=== PATIENT | male | born 1985 | race Caucasian/White ===

== ENCOUNTER → 2016-04-06 | Outpatient (CLI) | payer BC ==
[~2016-04-06] MED LIST: /WARF5TA OR; AMIO10TA OR; ASPI81CH PO; CARV12.5 OR; DIGO0.126 OR; NO MEDICATIONS
[2016-04-06 19:42] LABS: INR 2.33
== END ==
LOC: M WUC 18:24
PROVIDERS: ATTEND Family Medicine
DX: Z79.01 Long term (current) use of anticoagulants (principal); Z95.2 Presence of prosthetic heart valve

== ENCOUNTER → 2016-05-18 | Outpatient (REF) | payer BC ==
[2016-05-18 13:09] LABS: ANION GAP 6 MEQ/L (8-16); BLOOD UREA NITROGEN 13 MG/DL (7-18); CALCIUM LEVEL 8.8 MG/DL (8.5-10.1); CARBON DIOXIDE LEVEL 29 MEQ/L (21-32); CHLORIDE LEVEL 106 MEQ/L (98-107); CREATININE FOR GFR 0.88 MG/DL (0.70-1.30); GLOMERULAR FILTRATION RATE > 60.0 (>60); GLUCOSE, FASTING 73 MG/DL (70-105); POTASSIUM SERUM 4.4 MEQ/L (3.5-5.1); SODIUM LEVEL 141 MEQ/L (136-145)
[2016-05-18 13:15] LABS: INR 2.72
== END ==
LOC: M SFHCPLAZ 09:11
PROVIDERS: ATTEND Family Medicine
DX: Z51.81 Encounter for therapeutic drug level monitoring (principal); I10 Essential (primary) hypertension

== ENCOUNTER → 2016-06-08 | Outpatient (CLI) | payer BC ==
--- NOTE | 2016-06-08 15:27 | REP ---
MRA BRAIN WITHOUT CONTRAST: HISTORY: Aneurysm. 3D [id number] MR angiography was performed at the level of the [place]. 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 The aneurysm measures 2 x 2 mm and is unchanged in size compared to the previous study. The aneurysm projects lateral from the cavernous right internal carotid artery. There is no other aneurysm or arteriovenous malformation. There are no atherosclerotic lesions. The major intracranial vessels are patent. The vertebral arteries are equal in size. 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 Signed by Og Metz MD 06/08/2016 03:39 P
== END ==
LOC: M RAD 13:49
PROVIDERS: ATTEND Family Medicine
DX: I67.1 Cerebral aneurysm, nonruptured (principal)

== ENCOUNTER → 2016-06-20 | Outpatient (REF) | payer BC ==
[2016-06-20 11:57] LABS: BASO % 0.5 % (0.0-1.0); EOS # 0.2 K/mm3 (0.0-0.50); LARGE UNSTAINED CELL # 0.2 K/mm3 (0.0-0.4); LARGE UNSTAINED CELL % 2.6 % (0.0-4.0); LYMPH # 1.9 K/mm3 (1.5-6.5); LYMPH % 28.6 % (24.0-44.0); MEAN CORPUSCULAR HEMOGLOBIN 31.8 pg (27.0-33.0); MEAN CORPUSCULAR HGB CONC 34.3 g/dl (32.0-36.5); MEAN CORPUSCULAR VOLUME 92.8 fl (80.0-96.0); MONO # 0.6 K/mm3 (0.0-0.8); MONO % 9.2 % (0.0-5.0); NEUTROPHILS # 3.5 K/mm3 (1.8-7.7); PLATELET COUNT, AUTOMATED 206 k/mm3 (150-450); RED CELL DISTRIBUTION WIDTH 12.9 % (11.5-14.5); WHITE BLOOD COUNT 6.2 K/mm3 (4.0-10.0)
[2016-06-20 12:19] LABS: ALBUMIN 4.2 GM/DL (3.2-5.2); ALBUMIN/GLOBULIN RATIO 1.31 (1.00-1.93); ALKALINE PHOSPHATASE 56 U/L (45-117); ALT/SGPT 69 U/L (12-78); ANION GAP 5 MEQ/L (8-16); AST/SGOT 38 U/L (15-37); BILIRUBIN,TOTAL 0.5 MG/DL (0.2-1.0); BLOOD UREA NITROGEN 14 MG/DL (7-18); CALCIUM LEVEL 9.6 MG/DL (8.5-10.1); CARBON DIOXIDE LEVEL 29 MEQ/L (21-32); CHLORIDE LEVEL 106 MEQ/L (98-107); CHOLESTEROL LEVEL 296 MG/DL (<200); CREATININE FOR GFR 0.86 MG/DL (0.70-1.30); GLOMERULAR FILTRATION RATE > 60.0 (>60); GLUCOSE, FASTING 78 MG/DL (70-105); SODIUM LEVEL 140 MEQ/L (136-145); TOTAL PROTEIN 7.4 GM/DL (6.4-8.2); TRIGLYCERIDES LEVEL 115 MG/DL (<150)
[2016-06-20 12:20] LABS: INR 1.75
[2016-06-20 12:23] LABS: POTASSIUM SERUM 5.2 MEQ/L (3.5-5.1)
== END ==
LOC: M SFHCPLAZ 07:54
PROVIDERS: ATTEND Family Medicine
DX: Z13.21 Encounter for screening for nutritional disorder (principal); Z13.220 Encounter for screening for lipoid disorders; Z51.81 Encounter for therapeutic drug level monitoring; Z79.01 Long term (current) use of anticoagulants; I10 Essential (primary) hypertension

== ENCOUNTER 2016-07-29 10:21 | Emergency (ER) | payer BC ==
[~2016-07-29] VITALS: Ht 188 cm; Wt 106.8 kg
[2016-07-29] MEDS ORDERED: COUM10TA PO (10:31)
[2016-07-29] MEDS ORDERED: LISI10TA4 PO (10:34)
[2016-07-29 11:07] LABS: MEAN CORPUSCULAR HEMOGLOBIN 32.3 pg (27.0-33.0); MEAN CORPUSCULAR HGB CONC 35.6 g/dl (32.0-36.5); MEAN CORPUSCULAR VOLUME 90.8 fl (80.0-96.0); RED CELL DISTRIBUTION WIDTH 13.2 % (11.5-14.5)
[2016-07-29 11:18] LABS: ANION GAP 7 MEQ/L (8-16); BLOOD UREA NITROGEN 7 MG/DL (7-18); CARBON DIOXIDE LEVEL 27 MEQ/L (21-32); CHLORIDE LEVEL 107 MEQ/L (98-107); CREATININE FOR GFR 0.89 MG/DL (0.70-1.30); GLOMERULAR FILTRATION RATE > 60.0 (>60); GLUCOSE, FASTING 86 MG/DL (70-105); POTASSIUM SERUM 4.2 MEQ/L (3.5-5.1); SODIUM LEVEL 141 MEQ/L (136-145)
[2016-07-29 12:50] LABS: INR 5.46
[2016-07-29 13:32] VITALS: BP 132/72
== END 2016-07-29 13:34 | disposition home or self-care (01) ==
LOC: M ED 10:54
DX: R79.1 Abnormal coagulation profile (principal); Z98.890 Other specified postprocedural states; I10 Essential (primary) hypertension; J45.909 Unspecified asthma, uncomplicated; Z87.891 Personal history of nicotine dependence; Z79.01 Long term (current) use of anticoagulants; Z79.899 Other long term (current) drug therapy

== ENCOUNTER → 2016-08-01 | Outpatient (REF) | payer BC ==
[~2016-08-01] MED LIST changes: +COUM10TA PO; +LISI10TA4 PO
== END ==
LOC: M SFHCPLAZ 08:13
PROVIDERS: ATTEND Family Medicine
DX: Z51.81 Encounter for therapeutic drug level monitoring (principal); Z79.01 Long term (current) use of anticoagulants; Z95.2 Presence of prosthetic heart valve; Z53.9 Procedure and treatment not carried out, unspecified reason

== ENCOUNTER → 2016-08-22 | Outpatient (CLI) | payer BC ==
[2016-08-22 20:11] LABS: INR 3.78
== END ==
LOC: M WUC 17:06
PROVIDERS: ATTEND Family Medicine
DX: Z95.2 Presence of prosthetic heart valve (principal)

== ENCOUNTER → 2016-09-02 | Outpatient (CLI) | payer BC ==
[2016-09-02 13:30] LABS: INR 3.6
== END ==
LOC: M WUC 10:24
PROVIDERS: ATTEND Family Medicine
DX: Z51.81 Encounter for therapeutic drug level monitoring (principal); Z79.01 Long term (current) use of anticoagulants

== ENCOUNTER → 2016-09-09 | Outpatient (CLI) | payer BC ==
[2016-09-09 19:15] LABS: INR 3.59
== END ==
LOC: M WUC 17:01
PROVIDERS: ATTEND Family Medicine
DX: Z51.81 Encounter for therapeutic drug level monitoring (principal); Z79.01 Long term (current) use of anticoagulants

== ENCOUNTER → 2016-10-04 | Outpatient (REF) | payer BC ==
[2016-10-04 17:53] LABS: INR 2.29
== END ==
LOC: M SFHCPLAZ 16:25
PROVIDERS: ATTEND Family Medicine
DX: Z51.81 Encounter for therapeutic drug level monitoring (principal); Z79.01 Long term (current) use of anticoagulants; Z95.2 Presence of prosthetic heart valve

== ENCOUNTER → 2016-11-03 | Outpatient (CLI) | payer BC ==
[2016-11-03 19:50] LABS: INR 4.11
== END ==
LOC: M WUC 17:10
PROVIDERS: ATTEND Obstetrics & Gynecology
DX: Z51.81 Encounter for therapeutic drug level monitoring (principal); Z79.01 Long term (current) use of anticoagulants; Z95.2 Presence of prosthetic heart valve

== ENCOUNTER → 2016-11-10 | Outpatient (CLI) | payer BC ==
[2016-11-10 20:54] LABS: INR 4.58
== END ==
LOC: M WUC 18:21
PROVIDERS: ATTEND Obstetrics & Gynecology
DX: Z51.81 Encounter for therapeutic drug level monitoring (principal); Z79.01 Long term (current) use of anticoagulants; Z95.2 Presence of prosthetic heart valve

== ENCOUNTER → 2016-11-18 | Outpatient (CLI) | payer BC ==
[2016-11-18 19:59] LABS: INR 2.14
== END ==
LOC: M WUC 17:02
PROVIDERS: ATTEND Obstetrics & Gynecology
DX: Z51.81 Encounter for therapeutic drug level monitoring (principal); Z79.01 Long term (current) use of anticoagulants; Z95.2 Presence of prosthetic heart valve

== ENCOUNTER → 2016-11-29 | Outpatient (CLI) | payer BC ==
[2016-11-29 20:25] LABS: INR 2.71
== END ==
LOC: M WUC 17:58
PROVIDERS: ATTEND Obstetrics & Gynecology
DX: Z51.81 Encounter for therapeutic drug level monitoring (principal)

== ENCOUNTER → 2016-12-07 | Outpatient (REF) | payer BC ==
[2016-12-07 18:40] LABS: INR 2.98
== END ==
LOC: M LABWUC 16:22
PROVIDERS: ATTEND Obstetrics & Gynecology
DX: Z51.81 Encounter for therapeutic drug level monitoring (principal)

== ENCOUNTER → 2016-12-26 | Outpatient (CLI) | payer BC ==
[2016-12-26 20:54] LABS: INR 1.58
== END ==
LOC: M WUC 17:28
PROVIDERS: ATTEND Obstetrics & Gynecology
DX: Z51.81 Encounter for therapeutic drug level monitoring (principal); Z79.01 Long term (current) use of anticoagulants

== ENCOUNTER → 2017-01-03 | Outpatient (CLI) | payer BC ==
[2017-01-03 19:36] LABS: INR 3.08
== END ==
LOC: M WUC 17:02
PROVIDERS: ATTEND Obstetrics & Gynecology
DX: Z51.81 Encounter for therapeutic drug level monitoring (principal); Z79.01 Long term (current) use of anticoagulants

== ENCOUNTER → 2017-01-17 | Outpatient (CLI) | payer BC ==
[2017-01-17 20:15] LABS: INR 2.36
== END ==
LOC: M WUC 17:32
PROVIDERS: ATTEND Obstetrics & Gynecology
DX: Z51.81 Encounter for therapeutic drug level monitoring (principal)

== ENCOUNTER → 2017-02-20 | Outpatient (REF) | payer BC ==
[2017-02-20 17:50] LABS: INR 3.52
== END ==
LOC: M SFHCPLAZ 15:37
DX: Z79.01 Long term (current) use of anticoagulants (principal)
CPT/HCPCS: 85610

== ENCOUNTER → 2017-02-20 | Outpatient (REF) | payer BC | LOC: M LAB REF 18:41 | DX: D22.4 Melanocytic nevi of scalp and neck (principal) | CPT/HCPCS: 88305 ==

== ENCOUNTER → 2017-02-28 | Outpatient (REF) | payer BC ==
[2017-02-28 15:51] LABS: INR 1.74; PROTHROMBIN TIME 20.9 SECONDS (12.4-14.5)
== END ==
LOC: M SFHCPLAZ 15:34
DX: Z51.81 Encounter for therapeutic drug level monitoring (principal)
CPT/HCPCS: 85610

== ENCOUNTER → 2017-03-06 | Outpatient (REF) | payer BC ==
[2017-03-06 18:18] LABS: INR 2.52; PROTHROMBIN TIME 28.2 SECONDS (12.4-14.5)
== END ==
LOC: M SFHCPLAZ 15:29
DX: Z51.81 Encounter for therapeutic drug level monitoring (principal)

== ENCOUNTER → 2017-04-03 | Outpatient (REF) | payer BC ==
[2017-04-03 16:04] LABS: INR 3.83; PROTHROMBIN TIME 39.6 SECONDS (12.4-14.5)
== END ==
LOC: M SFHCPLAZ 13:14
DX: Z51.81 Encounter for therapeutic drug level monitoring (principal)
CPT/HCPCS: 85610

== ENCOUNTER → 2017-04-18 | Outpatient (REF) | payer BC ==
[2017-04-18 18:02] LABS: INR 1.89; PROTHROMBIN TIME 22.3 SECONDS (12.4-14.5)
== END ==
LOC: M SFHCPLAZ 15:16
DX: Z51.81 Encounter for therapeutic drug level monitoring (principal); R50.9 Fever, unspecified
CPT/HCPCS: 85610

== ENCOUNTER → 2017-05-02 | Outpatient (CLI) | payer BC ==
[2017-05-02 20:05] LABS: BASO % 0.3 % (0.0-1.0); EOS # 0.1 10^3/uL (0.0-0.50); EOS % 1.3 % (0.0-3.0); HEMATOCRIT 46.2 % (42.0-52.0); HEMOGLOBIN 16.2 g/dl (14.0-18.0); IMMATURE GRANULOCYTE % 0.5 % (0-3.0); LYMPH % 20.8 % (24.0-44.0); MEAN CORPUSCULAR HEMOGLOBIN 31.6 pg (27.0-33.0); MEAN CORPUSCULAR HGB CONC 35.1 g/dl (32.0-36.5); MEAN CORPUSCULAR VOLUME 90.1 fl (80.0-96.0); MONO % 10.7 % (0.0-5.0); NEUTROPHILS # 6.5 10^3/uL (1.8-7.7); NEUTROPHILS % 66.4 % (36.0-66.0); PLATELET COUNT, AUTOMATED 281 10^3/uL (150-450); RED BLOOD COUNT 5.13 10^6/uL (4.30-6.10); RED CELL DISTRIBUTION WIDTH 12.2 % (11.5-14.5); WHITE BLOOD COUNT 9.8 10^3/uL (4.0-10.0)
[2017-05-02 20:24] LABS: ALBUMIN 4.5 GM/DL (3.2-5.2); ALBUMIN/GLOBULIN RATIO 1.32 (1.00-1.93); ALKALINE PHOSPHATASE 66 U/L (45-117); ALT/SGPT 42 U/L (12-78); ANION GAP 8 MEQ/L (8-16); AST/SGOT 36 U/L (7-37); BILIRUBIN,TOTAL 0.5 MG/DL (0.2-1.0); BLOOD UREA NITROGEN 12 MG/DL (7-18); CALCIUM LEVEL 9.4 MG/DL (8.5-10.1); CARBON DIOXIDE LEVEL 30 MEQ/L (21-32); CHLORIDE LEVEL 103 MEQ/L (98-107); CREATININE FOR GFR 0.83 MG/DL (0.70-1.30); GLOMERULAR FILTRATION RATE > 60.0 (>60); GLUCOSE, FASTING 69 MG/DL (70-100); SODIUM LEVEL 141 MEQ/L (136-145); TOTAL PROTEIN 7.9 GM/DL (6.4-8.2); URIC ACID 4.3 MG/DL (3.5-7.2)
== END ==
LOC: M WUC 18:30
DX: M79.671 Pain in right foot (principal); L03.115 Cellulitis of right lower limb
CPT/HCPCS: 84550

== ENCOUNTER → 2017-08-04 | Outpatient (CLI) | payer BC ==
[2017-08-04 19:34] LABS: PROTHROMBIN TIME 60.3 SECONDS (12.4-14.5)
[2017-08-04 20:20] LABS: INR 6.42
== END ==
LOC: M WUC 16:29
DX: Z51.81 Encounter for therapeutic drug level monitoring (principal); Z79.01 Long term (current) use of anticoagulants
CPT/HCPCS: 85610

== ENCOUNTER → 2017-08-07 | Outpatient (CLI) | payer BC ==
[2017-08-07 19:54] LABS: INR 2.53; PROTHROMBIN TIME 28.3 SECONDS (12.4-14.5)
== END ==
LOC: M WUC 17:42
DX: Z51.81 Encounter for therapeutic drug level monitoring (principal); Z79.01 Long term (current) use of anticoagulants
CPT/HCPCS: 85610

== ENCOUNTER → 2017-09-13 | Outpatient (CLI) | payer BC ==
[2017-09-13 12:32] LABS: INR 4.15; PROTHROMBIN TIME 41.1 SECONDS (12.1-14.4)
== END ==
LOC: M WUC 09:37
DX: Z79.899 Other long term (current) drug therapy (principal)
CPT/HCPCS: 85610

== ENCOUNTER → 2017-09-20 | Outpatient (CLI) | payer BC ==
[2017-09-20 19:53] LABS: INR 3.29; PROTHROMBIN TIME 34.3 SECONDS (12.1-14.4)
== END ==
LOC: M WUC 15:33
DX: Z51.81 Encounter for therapeutic drug level monitoring (principal); Z79.899 Other long term (current) drug therapy
CPT/HCPCS: 85610

== ENCOUNTER → 2017-10-02 | Outpatient (REF) | payer BC | LOC: M SFHCPLAZ 16:55 | DX: Z79.01 Long term (current) use of anticoagulants (principal); Z53.9 Procedure and treatment not carried out, unspecified reason ==

== ENCOUNTER → 2017-12-28 | Outpatient (CLI) | payer BC ==
[2017-12-28 20:26] LABS: INR 1.98; PROTHROMBIN TIME 22.9 SECONDS (12.1-14.4)
== END ==
LOC: M WUC 17:23
DX: Z51.81 Encounter for therapeutic drug level monitoring (principal); Z79.01 Long term (current) use of anticoagulants
CPT/HCPCS: 85610

== ENCOUNTER → 2018-04-04 | Outpatient (CLI) | payer BC ==
[2018-04-04 20:00] LABS: INR 2.6; PROTHROMBIN TIME 28.4 SECONDS (12.1-14.4)
== END ==
LOC: M WUC 17:31
PROVIDERS: ATTEND Obstetrics & Gynecology
DX: Z51.81 Encounter for therapeutic drug level monitoring (principal); Z79.899 Other long term (current) drug therapy

== ENCOUNTER → 2018-11-09 | Outpatient (REF) | payer OTHER ==
[~2018-11-09] MED LIST changes: -/WARF5TA OR; -AMIO10TA OR; +COUM1TAB17 OR; +PACE0.05 OR
[2018-11-09 15:28] LABS: INR 2.49; PROTHROMBIN TIME 26.8 SECONDS (11.8-14.0)
== END ==
LOC: M SFHCPLAZ 10:11
PROVIDERS: ATTEND Family Medicine
DX: Z51.81 Encounter for therapeutic drug level monitoring (principal)

== ENCOUNTER → 2018-12-20 | Outpatient (CLI) | payer BC ==
[2018-12-20 21:02] LABS: INR 2.69; PROTHROMBIN TIME 28.5 SECONDS (11.8-14.0)
== END ==
LOC: M WUC 15:47
PROVIDERS: ATTEND Obstetrics & Gynecology
DX: Z51.81 Encounter for therapeutic drug level monitoring (principal)

== ENCOUNTER → 2019-01-08 | Outpatient (REF) | payer BC ==
[2019-01-08 16:27] LABS: INR 2.07; PROTHROMBIN TIME 23.1 SECONDS (11.8-14.0)
== END ==
LOC: M SFHCPLAZ 15:34
PROVIDERS: ATTEND Obstetrics & Gynecology
DX: Z51.81 Encounter for therapeutic drug level monitoring (principal)

== ENCOUNTER → 2019-01-15 | Outpatient (REF) | payer BC | LOC: M SFHCPLAZ 16:33 | PROVIDERS: ATTEND Obstetrics & Gynecology | DX: Z53.9 Procedure and treatment not carried out, unspecified reason (principal) ==

== ENCOUNTER → 2019-02-19 | Outpatient (CLI) | payer BC ==
[2019-02-19 20:44] LABS: INR 2.45; PROTHROMBIN TIME 26.5 SECONDS (11.8-14.0)
== END ==
LOC: M WUC 16:00
PROVIDERS: ATTEND Obstetrics & Gynecology
DX: Z51.81 Encounter for therapeutic drug level monitoring (principal); Z79.01 Long term (current) use of anticoagulants

== ENCOUNTER → 2019-03-15 | Outpatient (REF) | payer BC ==
[2019-03-15 16:21] LABS: PROTHROMBIN TIME 59.7 SECONDS (11.8-14.0)
[2019-03-15 17:43] LABS: INR 6.79
== END ==
LOC: M SFHCPLAZ 14:08
DX: Z51.81 Encounter for therapeutic drug level monitoring (principal)

== ENCOUNTER → 2019-03-18 | Outpatient (REF) | payer BC | LOC: M SFHCPLAZ 18:09 | PROVIDERS: ATTEND Obstetrics & Gynecology | DX: Z51.81 Encounter for therapeutic drug level monitoring (principal) ==

== ENCOUNTER → 2019-03-18 | Outpatient (CLI) | payer BC ==
[2019-03-18 17:58] LABS: INR 1.52
== END ==
LOC: M WUC 12:45
PROVIDERS: ATTEND Obstetrics & Gynecology
DX: Z51.81 Encounter for therapeutic drug level monitoring (principal)

== ENCOUNTER → 2019-03-25 | Outpatient (CLI) | payer BC ==
[2019-03-25 20:49] LABS: INR 2.39; PROTHROMBIN TIME 25.9 SECONDS (11.8-14.0)
== END ==
LOC: M WUC 15:40
PROVIDERS: ATTEND Obstetrics & Gynecology
DX: Z51.81 Encounter for therapeutic drug level monitoring (principal); Z79.01 Long term (current) use of anticoagulants

== ENCOUNTER → 2019-04-01 | Outpatient (CLI) | payer BC ==
[2019-04-01 17:42] LABS: INR 2.91; PROTHROMBIN TIME 30.3 SECONDS (11.8-14.0)
== END ==
LOC: M WUC 15:48
PROVIDERS: ATTEND Obstetrics & Gynecology
DX: Z51.81 Encounter for therapeutic drug level monitoring (principal)

== ENCOUNTER → 2019-04-15 | Outpatient (CLI) | payer BC ==
[2019-04-15 20:37] LABS: INR 1.88; PROTHROMBIN TIME 21.4 SECONDS (11.8-14.0)
== END ==
LOC: M WUC 16:48
PROVIDERS: ATTEND Obstetrics & Gynecology
DX: Z51.81 Encounter for therapeutic drug level monitoring (principal)

== ENCOUNTER → 2019-06-20 | Outpatient (CLI) | payer BC ==
[2019-06-20 19:32] LABS: INR 4.06; PROTHROMBIN TIME 39.6 SECONDS (11.8-14.0)
== END ==
LOC: M WUC 16:09
PROVIDERS: ATTEND Obstetrics & Gynecology
DX: Z79.01 Long term (current) use of anticoagulants (principal)

== ENCOUNTER → 2019-06-20 | Outpatient (REF) | payer BC | LOC: M SFHCPLAZ 19:46 | PROVIDERS: ATTEND Obstetrics & Gynecology | DX: Z53.9 Procedure and treatment not carried out, unspecified reason (principal) ==

== ENCOUNTER → 2019-08-01 | Outpatient (CLI) | payer BC ==
[~2019-08-01] MED LIST changes: +LISI10TA22 PO; -LISI10TA4 PO
[2019-08-01 16:35] LABS: INR 1.76; PROTHROMBIN TIME 20.3 SECONDS (11.8-14.0)
== END ==
LOC: M WUC 14:22
PROVIDERS: ATTEND Obstetrics & Gynecology
DX: Z51.81 Encounter for therapeutic drug level monitoring (principal)

== ENCOUNTER → 2019-08-07 | Outpatient (CLI) | payer BC ==
[~2019-08-07] MED LIST changes: -LISI10TA22 PO; +LISI10TA4 PO
[2019-08-07 13:51] LABS: INR 3.53; PROTHROMBIN TIME 35.4 SECONDS (11.8-14.0)
== END ==
LOC: M WUC 09:40
PROVIDERS: ATTEND Obstetrics & Gynecology
DX: Z79.01 Long term (current) use of anticoagulants (principal)

== ENCOUNTER 2019-09-04 16:17 | Emergency (ER) | payer BC, SELFPAY ==
[~2019-09-04] VITALS: Ht 188 cm; Wt 100.3 kg
--- NOTE | 2019-09-04 17:20 | REP ---
Duplex extremity venous ultrasound: Right lower extremity. History: Right calf swelling. Status post injury. DVT versus hematoma. Findings: The deep veins are anechoic and fully compressible from the groin to the popliteal fossa in the right lower extremity. Color flow imaging is homogeneous. Spectral Doppler interrogation demonstrates intact respiratory variation in flow and normal manual augmentation of flow. There is no evidence of deep vein thrombosis. Impression: Negative right lower extremity duplex venous ultrasound. No evidence of deep vein thrombosis. Electronically Signed by Miguel Moss MD 09/04/2019 05:11 P
--- NOTE | 2019-09-04 17:22 | REP ---
Soft tissue sonography right posterior calf area. History: Spontaneous mapping injury behind the knee 2 days ago with right calf swelling post injury. Findings: Scanning in the area of concern demonstrates a 9.6 x 2.9 x 5.3 cm intramuscular hypoechoic avascular collection consistent with intramuscular hematoma, dissection of the Narvaez's cyst, versus abscess. Electronically Signed by Miguel Moss MD 09/04/2019 05:13 P
[2019-09-04 17:31] LABS: BASO % 0.5 % (0.0-1.0); EOS # 0.2 10^3/uL (0.0-0.5); EOS % 2.2 % (0.0-3.0); HEMATOCRIT 38.7 % (42.0-52.0); HEMOGLOBIN 13.3 g/dl (13.5-17.5); LYMPH # 1.4 10^3/uL (1.5-5.0); MEAN CORPUSCULAR HEMOGLOBIN 32.3 pg (27.0-33.0); MEAN CORPUSCULAR HGB CONC 34.4 g/dl (32.0-36.5); MEAN CORPUSCULAR VOLUME 93.9 fl (80.0-96.0); MONO # 1.1 10^3/uL (0.0-0.8); MONO % 12.8 % (0.0-5.0); NEUTROPHILS # 5.9 10^3/uL (1.5-8.5); NEUTROPHILS % 68.2 % (36.0-66.0); PLATELET COUNT, AUTOMATED 211 10^3/uL (150-450); RED BLOOD COUNT 4.12 10^6/uL (4.30-6.10); WHITE BLOOD COUNT 8.6 10^3/uL (4.0-10.0)
[2019-09-04 17:44] LABS: PARTIAL THROMBOPLASTIN TIME 55.9 SECONDS (25.0-38.4)
[2019-09-04 17:47] LABS: PROTHROMBIN TIME 49.6 SECONDS (11.8-14.0)
[2019-09-04 17:56] LABS: ALBUMIN 3.7 GM/DL (3.2-5.2); ALT/SGPT 40 U/L (12-78); BILIRUBIN,DIRECT 0.2 MG/DL (0.0-0.2); BILIRUBIN,TOTAL 0.6 MG/DL (0.2-1.0); BLOOD UREA NITROGEN 15 MG/DL (7-18); C REACTIVE PROTEIN QUANTITATIV 1.16 MG/DL (0.00-0.30); CALCIUM LEVEL 8.6 MG/DL (8.5-10.1); CARBON DIOXIDE LEVEL 28 MEQ/L (21-32); CHLORIDE LEVEL 109 MEQ/L (98-107); CREATININE FOR GFR 0.96 MG/DL (0.70-1.30); GLOMERULAR FILTRATION RATE > 60.0 (>60); GLUCOSE, FASTING 103 MG/DL (70-100); POTASSIUM SERUM 3.8 MEQ/L (3.5-5.1); SODIUM LEVEL 143 MEQ/L (136-145); TOTAL PROTEIN 6.7 GM/DL (6.4-8.2)
[2019-09-04 18:49] LABS: ERYTHROCYTE SEDIMENTATION RATE 8 mm/hr (0-15)
[2019-09-04 19:07] LABS: INR 5.38
[2019-09-04 19:59] VITALS: BP 148/97
== END 2019-09-04 20:12 | disposition home or self-care (01) ==
LOC: M ED 16:17
DX: S80.11XA Contusion of right lower leg, initial encounter (principal); X58.XXXA Exposure to other specified factors, initial encounter; Y92.9 Unspecified place or not applicable; R79.1 Abnormal coagulation profile; I67.1 Cerebral aneurysm, nonruptured; I11.9 Hypertensive heart disease without heart failure; E78.5 Hyperlipidemia, unspecified; J45.909 Unspecified asthma, uncomplicated; M54.5 Low back pain; Z79.01 Long term (current) use of anticoagulants

== ENCOUNTER → 2021-01-05 | Outpatient (CLI) | payer BC ==
[~2021-01-05] MED LIST changes: +LISI10TA22 PO; -LISI10TA4 PO
[2021-01-05 20:45] LABS: INR 2.46
== END ==
LOC: M WUC 15:49
PROVIDERS: ATTEND Student in an Organized Health Care Education/Training Program
DX: Z51.81 Encounter for therapeutic drug level monitoring (principal)

== ENCOUNTER → 2021-07-19 | Outpatient (REF) | payer OTHER ==
[2021-07-19 13:53] LABS: INR 1.41; PROTHROMBIN TIME 17.7 SECONDS (12.7-14.5)
== END ==
LOC: M LAB REF 12:11
PROVIDERS: ATTEND Internal Medicine
DX: I48.0 Paroxysmal atrial fibrillation (principal); Z95.2 Presence of prosthetic heart valve; I35.1 Nonrheumatic aortic (valve) insufficiency

== ENCOUNTER → 2021-07-30 | Outpatient (REF) | payer OTHER ==
[2021-07-30 18:07] LABS: INR 4.2; PROTHROMBIN TIME 40.7 SECONDS (12.7-14.5)
== END ==
LOC: M LAB REF 16:22
PROVIDERS: ATTEND Nurse Practitioner Adult Health
DX: Z79.01 Long term (current) use of anticoagulants (principal)

== ENCOUNTER → 2022-02-18 | Outpatient (CLI) | payer OTHER | LOC: M RAD 14:41 | PROVIDERS: ATTEND Internal Medicine | DX: I72.0 Aneurysm of carotid artery (principal) ==

== ENCOUNTER → 2022-05-02 | Outpatient (CLI) | payer OTHER | LOC: M CARPUL 09:20 | PROVIDERS: ATTEND Internal Medicine | DX: I48.0 Paroxysmal atrial fibrillation (principal) ==

== ENCOUNTER 2024-01-10 23:24 | Emergency (ER) | payer OTHER ==
[~2024-01-10] VITALS: Ht 188 cm; Wt 111.4 kg
[2024-01-11 00:20] LABS: CK-MB VALUE MASS 1.8 NG/ML (<3.6)
[2024-01-11 00:22] LABS: BLOOD UREA NITROGEN 12 MG/DL (9-23); CALCIUM LEVEL 9.3 MG/DL (8.5-10.1); CARBON DIOXIDE LEVEL 25 MMOL/L (20-31); CHLORIDE LEVEL 108 MMOL/L (98-107); CREATININE FOR GFR 0.86 MG/DL (0.70-1.30); GLOMERULAR FILTRATION RATE > 60.0 (>60); GLUCOSE, FASTING 105 MG/DL (60-100); POTASSIUM SERUM 3.9 MMOL/L (3.5-5.1); SODIUM LEVEL 140 MMOL/L (136-145)
[2024-01-11 00:27] LABS: BASO % 0.3 % (0.0-1.0); EOS # 0.1 10^3/uL (0.0-0.5); HEMATOCRIT 41.6 % (42.0-52.0); HEMOGLOBIN 14.5 g/dl (13.5-17.5); LYMPH # 1.5 10^3/uL (1.5-5.0); LYMPH % 13.4 % (24.0-44.0); MEAN CORPUSCULAR HEMOGLOBIN 32.2 pg (27.0-33.0); MEAN CORPUSCULAR HGB CONC 34.9 g/dl (32.0-36.5); MEAN CORPUSCULAR VOLUME 92.2 fl (80.0-96.0); MONO # 0.8 10^3/uL (0.0-0.8); MONO % 7.3 % (2.0-8.0); NEUTROPHILS # 8.7 10^3/uL (1.5-8.5); NEUTROPHILS % 77.6 % (36.0-66.0); PLATELET COUNT, AUTOMATED 227 10^3/uL (150-450); RED BLOOD COUNT 4.51 10^6/uL (4.30-6.10); WHITE BLOOD COUNT 11.2 10^3/uL (4.0-10.0)
[2024-01-11 00:36] LABS: CPK CREATINE PHOSPHOKINASE 231 U/L (46-171); MB/CK RELATIVE INDEX 0.77 (< OR =4)
[2024-01-11] MEDS: ONDANSETRON 4MG 2ML VIAL IV ONE (00:56)
[2024-01-11] MEDS: MORPHINE 4 MG/ML 1ML VIAL IV PRN (00:57)
[2024-01-11 01:19] LABS: CK-MB VALUE MASS 2.1 NG/ML (<3.6)
[2024-01-11 01:21] LABS: MB/CK RELATIVE INDEX 0.99 (< OR =4)
[2024-01-11] MEDS: NITROGLYCERIN 0.4MG SUBL TABLET SL PRN (01:36)
[2024-01-11] MEDS ORDERED: ISOVUE-370 76% 100ML VIAL As Ordered ONE (01:50)
[2024-01-11 02:02] LABS: INR 2.29; PROTHROMBIN TIME 25.3 SECONDS (12.5-14.5)
[2024-01-11 02:18] VITALS: BP 136/93
[2024-01-11] MEDS: fentaNYL 100 MCG/2 ML INJECTION IV ONE (03:12)
[2024-01-11] MEDS ORDERED: PHYTONADIONE 10MG/ML 1ML INJECTION As Ordered ONE (03:34)
[2024-01-11] MEDS: PHYTONADIONE INJection 10 MG in NS 50 ML IV ONE (03:41)
[2024-01-11 03:45] VITALS: TEMP 98.3
[2024-01-11 03:46] VITALS: BP 154/93; O2SAT 87
[2024-01-11] MEDS: PROTHROMBIN COMPLEX CONCEN IV ONE (03:54)
[2024-01-11] MEDS: [UNRECOGNIZED DRUG - OTHER] IV ONE (03:54)
[2024-01-11] MEDS: PROTHROMBIN COMPLEX CONCENTRAT IV ONE (03:54)
[2024-01-11] MEDS ORDERED: PROTHROMBIN COMPLEX CONCEN IV ONE (04:00)
[2024-01-11] MEDS ORDERED: DILUENT IV ONE (04:00)
== END 2024-01-11 04:02 | disposition short-term general hospital (02) ==
LOC: M ED 23:24
DX: I31.2 Hemopericardium, not elsewhere classified (principal); I71.21 Aneurysm of the ascending aorta, without rupture; I44.0 Atrioventricular block, first degree; I51.7 Cardiomegaly; F12.10 Cannabis abuse, uncomplicated; F10.10 Alcohol abuse, uncomplicated; Z86.79 Personal history of other diseases of the circulatory system; Z79.01 Long term (current) use of anticoagulants
CPT/HCPCS: 71045; 71275; 80048; 82550; 82553; 84484; 85025; 85610; 93005; 93041; 94760; 96365; 96375; 99285; J2405; J3010; J3430; J7168; Q9967

== ENCOUNTER → 2024-01-22 | Outpatient (REF) | payer OTHER ==
[2024-01-22 16:54] LABS: INR 1.83; PROTHROMBIN TIME 21.4 SECONDS (12.5-14.5)
== END ==
LOC: M LAB REF 16:23
PROVIDERS: ATTEND Nurse Practitioner Family
DX: I71.010 Dissection of ascending aorta (principal)